=== PATIENT | male | born 1960 | race Caucasian/White ===

== ENCOUNTER 2018-05-13 18:37 | Emergency (ER) | payer SELFPAY ==
[~2018-05-13] VITALS: Ht 172.7 cm; Wt 78.5 kg
[2018-05-13 18:50] VITALS: BP 145/89
[2018-05-13] MEDS ORDERED: ACETAMINOPHEN EXTRA STRENGTH 500 MG TAB PO ONE (19:55)
[2018-05-13] MEDS ORDERED: KETOROLAC 30 MG/ML VIAL IM ONE (19:55)
[2018-05-13 21:30] VITALS: BP 128/86
== END 2018-05-13 21:32 | disposition home or self-care (01) ==
LOC: MED 18:37
DX: S63.502A Unspecified sprain of left wrist, initial encounter (principal); S00.31XA Abrasion of nose, initial encounter; E11.9 Type 2 diabetes mellitus without complications; W11.XXXA Fall on and from ladder, initial encounter; Y93.89 Activity, other specified; Y92.89 Other specified places as the place of occurrence of the external cause; Y99.8 Other external cause status
CPT/HCPCS: 29125; 73070; 73110; 73130; 96372; 99284; J1885